=== PATIENT | female | born 1995 | race Caucasian/White ===

== ENCOUNTER 2018-02-19 08:07 | Outpatient (CLI) | payer OTHER ==
[2018-02-19 08:42] LABS: APPEARANCE,URINE CLEAR (CLEAR); COLOR,URINE YELLOW (YELLOW); OCCULT BLOOD,URINE 2+ (NEGATIVE); UROBILINOGEN URINE 0.2 Eu (0.2-1.0)
[2018-02-19 09:14] LABS: eGFR (African) > 60; eGFR (Non-African) > 60
== END 2018-02-19 09:42 ==
LOC: LAB 08:07
PROVIDERS: ATTEND Surgery Vascular Surgery
DX: Z00.00 Encounter for general adult medical examination without abnormal findings (principal)
CPT/HCPCS: 36415; 80053; 81002